=== PATIENT | female | born 1960 | race Two or more races ===

== ENCOUNTER → 2025-02-17 | Outpatient (CLI) | payer MEDICARE, SELFPAY ==
--- NOTE | 2025-02-17 | XR_ITS ---
Examination: Bone densitometry Date and time of exam:February 17, 2025 1354 hours INDICATIONS: Hysterectomy age 42, personal history osteopenia Technique: Lumbar spine and hip total bone mineralization values of an calculated. Peak reference and age match control results have been displayed. Findings: Lumbar spine total bone mineralization is0.906 gm/cm2. This is 1.3 standard deviations below peak reference. This is 0.6 standard deviations above age-matched controls. Hip total bone mineralization is 0.827 gm/cm2 This is 0.9 standard deviations below peak reference. This is 0.3 standard deviations above age-matched controls Impression: There is osteopenia based on lumbar spine measurements. There is osteopenia based on hip measurements Lumbar mineralization is increase 0.6% compared with January 15, 2022 Hip mineralization is decreased 1.4% compared with October 18, 2021
== END | disposition home or self-care (01) ==
LOC: CDIM 13:24
PROVIDERS: Referring Provider Physician Assistant; Visit Provider Physician Assistant
DX: M85.89 Other specified disorders of bone density and structure, multiple sites (principal)
CPT/HCPCS: 77080

== ENCOUNTER → 2025-02-22 | Outpatient (CLI) | payer MEDICARE, SELFPAY ==
--- NOTE | 2025-02-22 08:45 | XR_ITS ---
Examination: Screening digital mammography, bilateral Computer aided detection 3-D breast Tomosynthesis, bilateral Date and time of exam: February 22, 2025 0756 hours Compared to mammograms dating to October Indication: Screening Technique: Nonmagnified MLO, CC views of the breasts to been obtained, reconstructed from 3-D Tomosynthesis images. R2 computer aided detection program utilized for evaluation of suspicious masses and/or abnormal calcifications. 3-D Tomosynthesis images obtained. Findings: The breasts are heterogeneously dense, which may obscure small masses 8 mm focal asymmetry 9:00 position right breast Impression: BI-RADS Category 0: Incomplete: Need additional imaging evaluation 8mm nodule 9:00 position right breast, recommend follow-up spot tomographic views of this nodule as well as right breast sonography to complete the workup
== END | disposition home or self-care (01) ==
LOC: CDIM 07:45
PROVIDERS: Referring Provider Physician Assistant; Visit Provider Physician Assistant
DX: Z12.31 Encounter for screening mammogram for malignant neoplasm of breast (principal); N63.15 Unspecified lump in the right breast, overlapping quadrants; N64.89 Other specified disorders of breast; R92.333 Mammographic heterogeneous density, bilateral breasts
CPT/HCPCS: 77063; 77067

== ENCOUNTER → 2025-04-08 | Outpatient (CLI) | payer MEDICARE, SELFPAY ==
--- NOTE | 2025-04-08 11:30 | XR_ITS ---
Examination: Breast ultrasound, unilateral, right complete Date and time of exam: April 08, 2025 1115 hours INDICATIONS: Mammogram February 22, 2025 8mm focal asymmetry 9:00 position right breast Technique: Real-time ferguson scale ultrasonographic imaging performed right breast including all 4 quadrants as well as nipple retroareolar and axillary region. Findings: No cystic or solid mass IMPRESSION: BI-RADS Category 1: Negative study
== END | disposition home or self-care (01) ==
LOC: CDIM 10:50
PROVIDERS: PCP Family Medicine; Referring Provider Physician Assistant; Visit Provider Physician Assistant
DX: N63.0 Unspecified lump in unspecified breast (principal)
CPT/HCPCS: 76641